=== PATIENT | male | born 1955 | race Caucasian/White ===

== ENCOUNTER 2023-12-23 06:35 | Day surgery (SDC) | payer OTHER ==
[~2023-12-23] VITALS: Ht 170.2 cm; Wt 100.7 kg
[2023-12-23] MEDS ORDERED: fentaNYL CITRATE/PF 100 MCG/2 ML AMP ONE (07:10)
[2023-12-23] MEDS ORDERED: MIDAZOLAM HCL 5 MG/5 ML VIAL ONE (07:11)
[2023-12-23 10:34] VITALS: O2SAT 96
[2023-12-23 11:42] VITALS: BP_SYST 149; PULSE 76; RESP 20
== END 2023-12-23 11:17 | disposition home or self-care (01) ==
LOC: SDS 06:35 → SMU 06:37 → SDS 11:17
PROVIDERS: ATTEND Internal Medicine Gastroenterology
DX: R19.5 Other fecal abnormalities (principal); D12.5 Benign neoplasm of sigmoid colon; D12.8 Benign neoplasm of rectum; D64.1 Secondary sideroblastic anemia due to disease; K29.50 Unspecified chronic gastritis without bleeding; K31.89 Other diseases of stomach and duodenum; K21.9 Gastro-esophageal reflux disease without esophagitis; K57.30 Diverticulosis of large intestine without perforation or abscess without bleeding; K64.8 Other hemorrhoids; I12.0 Hypertensive chronic kidney disease with stage 5 chronic kidney disease or end stage renal disease; E11.22 Type 2 diabetes mellitus with diabetic chronic kidney disease; N18.6 End stage renal disease; E78.5 Hyperlipidemia, unspecified; Z79.899 Other long term (current) drug therapy; Z99.2 Dependence on renal dialysis
CPT/HCPCS: 87081; 36415; 45380; 43239; 45381; 45385; 82948; 88305; 88312; 88313; 99152; 99153; G0378; J2250; J3010; C1889; 45384